=== PATIENT | male | born 1955 | race Caucasian/White ===

== ENCOUNTER → 2023-01-28 12:23 | Outpatient (CLI) | payer OTHER, SELFPAY ==
[2023-01-28 13:44] LABS: Add Manual Diff / Slide Review NO; Basophils Absolute Auto 100 /uL (0-100); Basophils Percent Auto 1.4 % (0-2); Eosinophils Absolute Auto 200 /uL (0-450); Eosinophils Percent Auto 3.4 % (2-4); Hematocrit 39.8 % (41-53); Hemoglobin 13.1 g/dL (13.5-17.5); Lymphocytes Absolute Auto 1700 /uL (1100-4500); Lymphocytes Percent Auto 25.9 % (25-40); Mean Corpuscular HGB Conc 32.8 % (30-36); Mean Corpuscular Hemoglobin 27.8 PG (26-34); Mean Corpuscular Volume 84.8 fL (80-100); Monocytes Absolute Auto 400 /uL (0-900); Monocytes Percent Auto 6.3 % (3-14); Neutrophils Absolute Auto 4100 /uL (1500-7000); Platelet Count 247 X10^3/uL (150-400); Red Blood Cell Count 4.69 X10^6/uL (4.5-5.9); Red Cell Distribution Width 13.7 % (11.6-14.8); White Blood Cell Count 6.6 X10^3/uL (4.5-11.0)
[2023-01-28 14:49] LABS: BUN Creatinine Ratio 18.4 (6-22); Blood Urea Nitrogen 14 mg/dL (9-20); Carbon Dioxide 27 mmol/L (22-32); Chloride 104 mmol/L (98-107); Estimated Glomerular Filt Rate > 60 mL/min (>60); Glucose 90 mg/dL (80-110); HEMOLYSIS < 15 (0-50); Potassium 4.2 mmol/L (3.4-5.1); Sodium 138 mmol/L (137-145)
== END ==
PROVIDERS: PCP Family Medicine; Referring Provider Orthopaedic Surgery; Visit Provider Orthopaedic Surgery
DX: Z01.818 Encounter for other preprocedural examination (principal); Z11.59 Encounter for screening for other viral diseases; Z01.812 Encounter for preprocedural laboratory examination
CPT/HCPCS: 36415; 80048; 85025; 93005

== ENCOUNTER 2023-02-24 06:11 | Inpatient (IN) | payer OTHER, MEDICARE, SELFPAY ==
[2023-02-14 13:43] VITALS: BMI 27.9
[2023-02-24] VITALS (9 sets, daily range): BP systolic 98–123; BP diastolic 60–79; PULSE 67–77; RESP 12–19; TEMP 36.1–36.8; O2SAT 95–100; BMI 27.9
--- NOTE | 2023-02-24 06:00 | DI.RAD.S_ITS ---
PROCEDURE: XR SHOULDER RT 1V INDICATIONS: TSA TECHNIQUE: 1 views of the shoulder were acquired. COMPARISON: None. FINDINGS: Postoperative changes of right total shoulder arthroplasty. Soft tissue postoperative changes are noted. IMPRESSION: Postoperative changes of total shoulder arthroplasty. Dictated by: Pradeep Cleaning M.D. on 02/24/2023 at 12:37 Approved by: Pradeep Cleaning M.D. on 02/24/2023 at 12:38
[2023-02-24] MEDS: ACETAMINOPHEN 325 MG TABLET 975 MG PO (07:10)
--- NOTE | 2023-02-24 07:33 | PM.PREOP ---
Pre-operative Note Interval Note History & Physical reviewed/Exam performed by Physician: Yes Changes to H&P: No
[2023-02-24 07:59] LABS: COVID19 -Nasal RAPID Negative (Negative)
[2023-02-24] MEDS: CEFAZOLIN 2 GM/100 ML PREMIX 100 ML IV (08:00)
--- NOTE | 2023-02-24 08:45 | SUR.OPER ---
Beach chair on padded OR bed. Head on gel donut secured with tape over gauze. Non-operative arm secured <90 degrees accross chest on pillow on padded arm board. Pillow under knees. Safety belt at thigh. Cloth tape over blanket over lower legs.
[2023-02-24] MEDS: LACTATED RINGERS 1,000 ML 42 ML IV (09:07)
[2023-02-24] MEDS: TRANEXAMIC ACID 1,000 MG VIAL 1000 MG INJ ×2 (10:22→10:58)
[2023-02-24] MEDS: BUPIVACAINE 0.25% (PF) VIAL 10 ML INJ (10:24)
[2023-02-24] MEDS: EPINEPHrine 1 MG/ML IM (10:27)
--- NOTE | 2023-02-24 10:36 | PM.OP.1 ---
Operative Date/Time/Diagnoses Date of procedure: 02/24/23 Time of procedure: 10:36 Pre-op diagnosis: Right shoulder glenohumeral arthritis Post-op diagnosis: same Procedure & Clinicians Procedure: Right total shoulder arthroplasty Same procedure as scheduled: Yes Indications: This is a 68-year-old male who has [primary osteoarthritis of the glenohumeral joint]. Symptoms have been present for years, insidious onset. Patient has failed conservative therapy including injections, physical therapy, anti-inflammatories and activity modification. After extensive discussion in clinic, they wished to go forward with surgery. Risks and benefits were described including the risk of infection, bleeding, damage to internal structures including nerves. We also discussed the risk of failure of surgery and the need for revision surgery as well as the risk of anesthesia. The patient expressed understanding with these risks and wished to go forward with surgery. Surgeon: Virgilio Pena Group Leader [employer] Processing: Rose Marie Putnam Anesthesia Type: General Operative Notes Findings: Findings: Osteoarthritis of the glenoid and humeral head as noted on preoperative imaging and under direct visualization. B2 glenoid with around 15? retroversion in the chayito glenoid Closure Type: primary Specimen(s): none sent Prosthetic devices, grafts, tissues, transplants, or devices: [employer] Implants CortiLoc Pegged Glenoid UHMWPE, size medium wedge, angle 15? Simpliciti Nucleus Size 3 Elmer chrome humeral head 52 x 23 Estimated Blood Loss (mL): 50 Blood products transfused: none Procedure in detail: Patient was seen in the preoperative holding unit. The correct right shoulder was identified and marked with my initials. Again we discussed the risks and benefits of surgery and they wished to go forward with surgery. The patient was brought back to the operating room and placed supine on the operating table. He underwent smooth endotracheal intubation. All prominences were padded and they were placed into the beach chair position. Intravenous antibiotics were given. The right shoulder was then prepped with the standard sterile preparation and draping. A time-out was then performed in my initials were again identified on the correct shoulder. 1 g of IV tranexamic acid was given. A standard deltopectoral incision was made. Skin flaps were made. The cephalic vein was identified and retracted laterally. This was protected throughout the remainder of the case. Sharp dissection was made along the deltoid, subacromial and subcoracoid space to release adhesions. The conjoined tendon was identified and the axillary nerve was palpated and continuous using the tug test. It was protected throughout the remainder of the case. A brown retractor was placed underneath the deltoid muscle and a darach retractor underneath the conjoint tendon. The biceps tendon was noted in the groove and was then tied in to the pectoralis tendon for a strong tenodesis. It was then released proximally. The anterior circumflex artery and associated veins on the lower border of the subscapularis were identified and tied off using 0-Vicryl. The biceps tendon was identified in the bicipital groove. This was released from its sheath, and taken from its origin on the glenoid and tied into the pectoralis tendon for a solid tenodesis. We then began a subscapularis peel. The subscapularis was tagged with an Ethibond suture. A 360 degree circumferential release of the subscapularis was performed with protection of the axillary nerve. The coracohumeral ligament was released at the base of the coracoid. The coracoacromial ligament was left intact. The shoulder was then dislocated. Osteophytes were removed using combination of rongeur and osteotome. The rotator cuff was noted to be intact. Using an oscillating saw a conservative humeral head cut was made using the patient's [place] version. The head was measured and a guide for size 3 simpliciti humeral head was used to drill a central hole followed by impaction. Attention was then turned to the glenoid. After retracting the humeral head posteriorly, release of the capsule and labrum was performed. Central guidewire was placed. The glenoid was then reamed with a 15 degree posterior Reamer. Peripheral holes were drilled. At this point dilute Betadine wash was performed for 2 minutes. Medium viscosity cement was mixed and the drill holes were completely dried. A all polyethylene pegged glenoid with a 15 degree posterior wedge was then selected, and cemented into the glenoid. Turning back to the humerus, the humeral head was delivered and 3 seperate Nice Loupes were passed through drill holes in the bicipital groove. The Size 3 nucleus was then impacted into the humerus and a size 52 stemless humeral head was placed. The shoulder was then reduced and again brought through range of motion and was felt to be stable. The interval was then closed using #2 ethibond. The subscapularis was then repaired using a modified racking hitch with niece loupes. The deltopectoral interval was then closed with #2 Ethibond. The skin was closed with 2-0 PDS and nancy followed by Aquacel dressing. Patient was awoken from anesthesia and brought back to the postoperative recovery unit without issue. They were placed into a sling. Assisting participation: This operation could not have been safely performed (without compromising the technical results or length of the procedure) without the assistance of a skilled transport assistant. The transport assistant was medically necessary for proper positioning, retraction and manipulation of instruments, proper exposure, graft prep, and manipulation of tissue. Complications: none Post-operative Condition: stable Disposition: PACU Plan for aftercare: Postoperative instructions: Sling to remain on for 6 weeks. No external rotation past neutral for 6 weeks. Okay for sling to come off for shower and gentle pendulum exercises. Okay to shower over the Aquacel dressing. If any water gets underneath the dressing, remove the dressing. First postoperative visit in 2 weeks.
[2023-02-24] MEDS: OXYCODONE/ACETAMINOPHEN 5/325 TABLET 1 TAB PO (12:32)
== END 2023-02-24 13:19 | disposition home or self-care (01) | DRG 483 ==
PROVIDERS: Admitting Provider Orthopaedic Surgery; PCP Family Medicine; Referring Provider Orthopaedic Surgery; Visit Provider Orthopaedic Surgery
PROC: 0RQJ0ZZ Repair Right Shoulder Joint, Open Approach (ICD-10-PCS; CPT 23472; principal; 2023-02-24 07:45)
DX: M19.011 Primary osteoarthritis, right shoulder (principal); Z20.822 Contact with and (suspected) exposure to COVID-19
CPT/HCPCS: 73020; 87635; C1776; C9803; J0171; J0690; J1100; J2250; J2405; J2704; J3010

== ENCOUNTER → 2023-06-24 09:07 | Outpatient (CLI) | payer MEDICARE, SELFPAY ==
[2023-06-24 10:26] LABS: Add Manual Diff / Slide Review NO; Basophils Absolute Auto 100 /uL (0-100); Basophils Percent Auto 1.4 % (0-2); Eosinophils Absolute Auto 700 /uL (0-450); Eosinophils Percent Auto 8.8 % (2-4); Hematocrit 39.8 % (41-53); Hemoglobin 13.4 g/dL (13.5-17.5); Lymphocytes Absolute Auto 1700 /uL (1100-4500); Lymphocytes Percent Auto 23.1 % (25-40); Mean Corpuscular HGB Conc 33.6 % (30-36); Mean Corpuscular Volume 83.2 fL (80-100); Monocytes Absolute Auto 600 /uL (0-900); Monocytes Percent Auto 7.7 % (3-14); Neutrophils Absolute Auto 4400 /uL (1500-7000); Platelet Count 263 X10^3/uL (150-400); Red Blood Cell Count 4.79 X10^6/uL (4.5-5.9); Red Cell Distribution Width 13.5 % (11.6-14.8); White Blood Cell Count 7.4 X10^3/uL (4.5-11.0)
[2023-06-24 10:37] LABS: Erythrocyte Sedimentation Rate 8 MM/HR (0-15)
[2023-06-24 11:00] LABS: C-Reactive Protein Quant < 0.5 mg/dL (<1.0)
== END ==
PROVIDERS: PCP Family Medicine; Referring Provider Orthopaedic Surgery; Visit Provider Orthopaedic Surgery
DX: Z96.611 Presence of right artificial shoulder joint (principal)
CPT/HCPCS: 36415; 85025; 85651; 86140

== ENCOUNTER 2023-09-28 07:19 | Inpatient (IN) | payer MEDICARE, SELFPAY ==
[2023-09-21 09:48] VITALS: BMI 28.7
[2023-09-28] VITALS (11 sets, daily range): BP systolic 94–156; BP diastolic 65–87; PULSE 69–83; RESP 12–17; TEMP 35.9–36.3; O2SAT 92–97; BMI 28.7
--- NOTE | 2023-09-28 06:00 | DI.RAD.S_ITS ---
PROCEDURE: XR SHOULDER LT MIN 2V INDICATIONS: TSA TECHNIQUE: 1 views of the shoulder were acquired. COMPARISON: [facility], CR, XR SHOULDER RT 1V, 02/24/2023, 10:54. FINDINGS: Bones: No fractures or dislocations. Shoulder arthroplasty has been performed. Hardware components are in expected position. No suspicious bony lesions. Visualized ribs appear intact. Soft tissues: No suspicious soft tissue calcifications. IMPRESSION: Postsurgical sequelae. Dictated by: Pradeep Cleaning M.D. on 09/28/2023 at 11:33 Approved by: Pradeep Cleaning M.D. on 09/28/2023 at 11:34
[2023-09-28] MEDS: LACTATED RINGERS 1,000 ML 42 ML IV (08:18)
[2023-09-28] MEDS: ACETAMINOPHEN 325 MG TABLET 975 MG PO (08:21)
--- NOTE | 2023-09-28 08:23 | PM.HP.1 ---
History of Present Illness History of Present Illness Date Patient Seen: 09/28/23 Time Patient Seen: 08:27 Chief complaint: INPT Narrative: Delmer is a pleasant 68-year-old male with left glenohumeral arthritis here today for a shoulder replacement. He has had no changes in his symptoms since I last saw him in clinic except for the shoulder is hurting. Denies any recent nausea, vomiting, diarrhea, fevers, chills denies any distal numbness or tingling [facility] Medical History (Updated 02/14/23 @ 14:14 by Mary Zayas RN) History of COVID-19 (06/2020) Hearing impaired SBO (small bowel obstruction) Anesthesia complication Esophagitis Surgical History (Updated 09/21/23 @ 09:52 by Mary Zayas RN) History of total replacement of right shoulder joint (02/24/23) Hx of abdominal surgery (~2019) Hx of abdominal surgery (~2017) H/O right wrist surgery Hx of appendectomy Hx of tonsillectomy History of nasal surgery History of arthroscopy of left shoulder History of arthroscopy of right shoulder Hx of arthroscopy of left knee Hx of foot surgery History of lumbar laminectomy History of lumbar spinal fusion (2015) Social History household members: spouse Smoking Status: Never smoker alcohol intake: current Meds Home Medications and Allergies Home Medications Medication Instructions Recorded Confirmed Type ferrous sulfate 325 mg (65 mg 325 mg PO Q OTHER DAY 02/14/23 09/28/23 History iron) tablet mesalamine 500 mg capsule,extended 1,000 mg PO DIRECTED 02/14/23 09/28/23 History release (Pentasa) omeprazole 20 mg tablet,delayed 20 mg PO DAILY 02/14/23 09/28/23 History release Allergies Allergy/AdvReac Type Severity Reaction Status Date / Time No Known Drug Allergies Allergy Verified 09/28/23 08:12 Review of Systems Review of Systems ROS: Yes All systems reviewed with the patient and are negative except as otherwise documented Exam Vital Signs (past 8 hours): - 09/28/23 08:02 Temperature 97.3 F L Pulse Rate 78 Respiratory Rate 17 Blood Pressure 156/87 H Pulse Oximetry 97 Oxygen Delivery Method Room Air Oxygen Flow Rate 0 Oxygen Delivery Method Room Air Oxygen Flow Rate 0 Narrative Exam Narrative: HEENT: Head atraumatic eyes anicteric moist mucous membranes Cardiovascular: Palpable peripheral pulses extremities are warm and well perfused Respiratory: Breathing comfortably on room air Psychiatric: Appropriate mood and affect Neuro: No acute deficits Musculoskeletal: Decreased range of motion and increased pain in the left shoulder as noted on last exam Assessment & Plan Assessment & Plan narrative: Assessment: 68-year-old male with left glenohumeral arthritis Plan: Discussed going forward with anatomic total shoulder arthroplasty today. Risks and benefits of surgery were discussed again including the risk of infection, damage to internal structures, bleeding, nerve injury, instability, need for revision surgery, blood clots, anesthesia and . No guarantees were made regarding outcomes. Patient expressed understanding and accepted these risks and wished to go forward with surgery and consent was signed.
--- NOTE | 2023-09-28 08:36 | SUR.PREOP ---
Timeout completed per protocol for block. Block start time [0840] . Monitoring initiated and maintained throughout procedure. Oxygen and medications given per anesthesiologist instructions. Patient remained stable throughout procedure, no adverse reactions noted. Block end time [0845].
[2023-09-28] MEDS: TRANEXAMIC ACID 1,000 MG VIAL 1000 MG INJ (08:52)
[2023-09-28] MEDS: CEFAZOLIN 2 GM/100 ML PREMIX 100 ML IV (08:52)
--- NOTE | 2023-09-28 09:21 | SUR.OPER ---
Beach chair with [employer] shoulder positioner. Lower body on padded OR bed. Head in foam padded head cradle, secured with straps. Non-operative arm secured <90 degrees abduction. Pillow under knees. Safety belt at thigh. Cloth tape over blanket over lower legs. Tape around upper torso, secured to the bed.
[2023-09-28] MEDS: BUPIVACAINE 0.25% (PF) 30 ML, EPINEPHrine 0.15 MG INJ (09:31)
--- NOTE | 2023-09-28 11:14 | PM.OP.1 ---
Operative Date/Time/Diagnoses Date of procedure: 09/28/23 Time of procedure: 11:15 Pre-op diagnosis: Left glenohumeral arthritis Post-op diagnosis: same Procedure & Clinicians Procedure: Left anatomic total shoulder replacement Same procedure as scheduled: Yes Indications: Indications: This is a 68-year-old male who has [primary osteoarthritis of the glenohumeral joint]. Symptoms have been present for years, insidious onset. Patient has failed conservative therapy including injections, physical therapy, anti-inflammatories and activity modification. After extensive discussion in clinic, they wished to go forward with surgery. Risks and benefits were described including the risk of infection, bleeding, damage to internal structures including nerves. We also discussed the risk of failure of surgery and the need for revision surgery as well as the risk of anesthesia. The patient expressed understanding with these risks and wished to go forward with surgery. Surgeon: Virgilio Pena Computer Operations Supervisor: Joshua Duran Anesthesia Type: General Operative Notes Findings: Findings: Osteoarthritis of the glenoid and humeral head as noted on preoperative imaging and under direct visualization Closure Type: primary Specimen(s): none sent Prosthetic devices, grafts, tissues, transplants, or devices: [employer]plants CortiLoc Pegged Glenoid UHMWPE medium with 15 degree wedge Simpliciti Nucleus Size 3 Simpliciti CoCr head size 50 by 19 Estimated Blood Loss (mL): 50 Blood products transfused: none Procedure in detail: Operative note: Patient was seen in the preoperative holding unit. The correct left shoulder was identified and marked with my initials. Again we discussed the risks and benefits of surgery and they wished to go forward with surgery. The patient was brought back to the operating room and placed supine on the operating table. [he] underwent smooth endotracheal intubation. All prominences were padded and they were placed into the beach chair position. Intravenous antibiotics were given. The left shoulder was then prepped with the standard sterile preparation and draping. A time-out was then performed in my initials were again identified on the correct shoulder. 1 g of IV tranexamic acid was given. A standard deltopectoral incision was made. Skin flaps were made. The cephalic vein was identified and retracted laterally. This was protected throughout the remainder of the case. Sharp dissection was made along the deltoid, subacromial and subcoracoid space to release adhesions. The conjoined tendon was identified and the axillary nerve was palpated and continuous using the tug test. It was protected throughout the remainder of the case. A brown retractor was placed underneath the deltoid muscle and a darach retractor underneath the conjoint tendon. The anterior circumflex artery and associated veins on the lower border of the subscapularis were identified and tied off using 0-Vicryl. The biceps tendon was identified in the bicipital groove. This was released from its sheath, and taken from its origin on the glenoid and tied into the pectoralis tendon for a solid tenodesis. We then began a subscapularis peel. The subscapularis was tagged with an Ethibond suture. A 360 degree circumferential release of the subscapularis was performed with protection of the axillary nerve. The coracohumeral ligament was released at the base of the coracoid. The coracoacromial ligament was left intact. The shoulder was then dislocated. Osteophytes were removed using combination of rongeur and osteotome. The rotator cuff was noted to be intact. Using an oscillating saw a conservative humeral head cut was made using the patient's [place] version. The head was measured and a guide for size 50 simpliciti humeral head was used to drill a central hole followed by impaction. Attention was then turned to the glenoid. After retracting the humeral head posteriorly, release of the capsule and labrum was performed. Central guidewire was placed. The glenoid was then reamed followed by a central drill over the guidewire. Guidewire was removed and using a guide, peripheral holes were drilled. At this point dilute Betadine wash was performed for 2 minutes. Medium viscosity cement was mixed and the drill holes were completely dried. An all polyethylene pegged glenoid was then selected, and cemented into the glenoid. Turning back to the humerus, the humeral head was delivered and 3 seperate Nice Loupes were passed through drill holes through the lesser tuberosity into the bicipital groove. The nucleus was then impacted into the humerus and a size 50 stemless humeral head was placed. The shoulder was then reduced and again brought through range of motion and was felt to be stable. The interval was then closed using #2 ethibond. The subscapularis was then repaired using a modified racking hitch with niece loupes. The deltopectoral interval was then closed with #2 Ethibond. The skin was closed with 2-0 PDS and Monocryl followed by Aquacel dressing. Patient was awoken from anesthesia and brought back to the postoperative recovery unit without issue. They were placed into a sling. Assisting participation: This operation could not have been safely performed (without compromising the technical results or length of the procedure) without the assistance of a skilled surgical consultant. The surgical consultant was medically necessary for proper positioning, retraction and manipulation of instruments, proper exposure, graft prep, and manipulation of tissue. Post-operative Condition: stable Disposition: PACU Plan for aftercare: Postoperative instructions: Sling to remain on for 6 weeks. No external rotation past neutral for 6 weeks. Okay for sling to come off for shower and gentle pendulum exercises. Okay to shower over the Aquacel dressing. If any water gets underneath the dressing, remove the dressing. First postoperative visit in 2 weeks.
[2023-09-28] MEDS: ONDANSETRON 4 MG/2 ML INJ IV (11:31)
[2023-09-28] MEDS: HYDROMORPHONE 1 MG INJ IV ×2 (11:40→11:54)
[2023-09-28] MEDS: OXYCODONE IR 5 MG TABLET PO (11:42)
[2023-09-28] MEDS: hydrOXYzine 50 MG/ML INJ 25 MG IM (11:45)
--- NOTE | 2023-09-28 13:36 | SUR.PHASEII ---
Patient dressed with assistance from spouse. He became pale and appeared fatigued, reported being hot. Patient was laid back down, IV fluids restarted. VS stable. Will continue IV fluid and monitor. Call light within reach.
--- NOTE | 2023-09-28 13:57 | SUR.PHASEII ---
Patient sat up and sling was placed. He reported feeling hot again and was laid back down. IV fluids infusing.
--- NOTE | 2023-09-28 14:45 | SUR.PHASEII ---
Patient was able to sit and stand without difficulty. Requested to discharge.
== END 2023-09-28 14:22 | disposition home or self-care (01) | DRG 483 ==
PROVIDERS: Admitting Provider Orthopaedic Surgery; PCP Family Medicine; Referring Provider Orthopaedic Surgery; Visit Provider Orthopaedic Surgery
PROC: 0RRK0JZ Replacement of Left Shoulder Joint with Synthetic Substitute, Open Approach (ICD-10-PCS; CPT 23472; principal; 2023-09-28 08:45)
DX: M19.012 Primary osteoarthritis, left shoulder (principal)
CPT/HCPCS: 64450; 73030; C1776; J0171; J0690; J1100; J1170; J2250; J2405; J2704; J3010; J3410; J3490